=== PATIENT | female | born 1970 | race Caucasian/White ===

== ENCOUNTER → 2020-12-14 | Outpatient (CLI) | payer BC ==
--- NOTE | 2020-12-15 07:35 | CT ---
EXAMINATION TYPE: CT abdomen pelvis wo con DATE OF EXAM: 12/14/2020 HISTORY: Left lower quadrant abdominal pain x1 month. CT DLP: 805.4 mGycm. Automated Exposure Control for Dose Reduction was Utilized. TECHNIQUE: CT scan of the abdomen and pelvis is performed without oral or IV contrast. COMPARISON: NONE FINDINGS: Within the limitations of a non-contrast study, the following observations are made. LUNG BASES: No significant abnormality is appreciated. LIVER/GB: Cholecystectomy clips. PANCREAS: No significant abnormality is seen. SPLEEN: No significant abnormality is seen. ADRENALS: No significant abnormality is seen. KIDNEYS: No renal stones or hydronephrosis is seen bilaterally. BOWEL: Normal-appearing appendix seen from cecum in the right lower quadrant. No suspicious small or large bowel dilatation. No significant colonic diverticular disease. GENITAL ORGANS: Uterus surgically absent or markedly atrophic. Remnant left ovary is felt present and normal in size axial image 115. Right ovary not as well seen. Scattered pelvic phleboliths. Correlat e clinically. LYMPH NODES: No greater than 1cm abdominal or pelvic lymph nodes are appreciated. OSSEOUS STRUCTURES: Mild Facet arthropathy lower lumbar spine. OTHER: No significant additional abnormality is seen. IMPRESSION: No suspicious acute findings identified.
== END | disposition home or self-care (01) ==
LOC: RADCTMAIN 18:18
PROVIDERS: ATTEND Family Medicine
DX: R10.9 Unspecified abdominal pain (principal)
CPT/HCPCS: 74176

== ENCOUNTER 2022-01-03 19:44 | Emergency (ER) | payer BC, OTHER ==
[2022-01-03 20:00] VITALS: RESP 20
--- NOTE | 2022-01-03 20:23 | ED ---
Lower Extremity Injury HPI - General Chief Complaint: Extremity Injury, Lower Stated Complaint: Rt Knee Pain (Workers Comp) Time Seen by Provider: 01/03/22 20:11 Source: patient, RN notes reviewed Mode of arrival: wheelchair Limitations: no limitations - History of Present Illness Initial Comments: This is a pleasant 51-year-old female who states that she got out of work and slipped on ice. Patient twisted her right knee. She believes a twisting motion injured the knee. She did fall but does not recount any direct trauma. She has swelling to the right knee with pain across the anterior aspect which is exacerbated by movement. Alleviated by rest. No radiation proximally or distally. No hip or ankle problems. No distal paresthesias. No other injuries. No headache, no fever or chills, no changes in vision or hearing, no sore throat or difficulty with speech, no neck pain, no chest pain or shortness of breath, no abdominal pain, no nausea or vomiting, no changes in urination or bowel movements, no numbness or tingling, no extremity pain, no skin rashes or lesions. MD Complaint: knee injury - Related Data Previous Rx's Medication Instructions Recorded Naproxen [Naprosyn] 375 mg PO Q12HR PRN #20 tablet 01/03/22 Allergies Allergy/AdvReac Type Severity Reaction Status Date / Time No Known Allergies Allergy Verified 01/03/22 20:00 Review of Systems ROS Statement: Those systems with pertinent positive or pertinent negative responses have been documented in the HPI. ROS Other: All systems not noted in ROS Statement are negative. Past Medical History Past Medical History: No Reported History History of Any Multi-Drug Resistant Organisms: None Reported Past Surgical History: Orthopedic Surgery Additional Past Surgical History / Comment(s): lt knee Past Psychological History: No Psychological Hx Reported Smoking Status: Never smoker Past Alcohol Use History: Occasional Past Drug Use History: None Reported General Exam - General Exam Comments Initial Comments: 51-year-old female in no distress Limitations: no limitations General appearance: alert, in no apparent distress Head exam: Present: atraumatic, normocephalic, normal inspection Eye exam: Present: normal appearance, PERRL, EOMI. Absent: scleral icterus, conjunctival injection, periorbital swelling ENT exam: Present: normal exam, mucous membranes moist Neck exam: Present: normal inspection, full ROM. Absent: tenderness, meningismus, lymphadenopathy Respiratory exam: Present: normal lung sounds bilaterally. Absent: respiratory distress, wheezes, rales, rhonchi, stridor Cardiovascular Exam: Present: regular rate GI/Abdominal exam: Present: soft. Absent: tenderness Extremities exam: Present: full ROM, tenderness, normal capillary refill, other (Patient has notable soft tissue swelling to the anterior aspect of the right knee. All crepitus. There may be some laxity to the ACL on anterior drawer test. Ligaments stable otherwise. No distal proximal tenderness. Pedal pulses intact. Capillary refill less than 2 seconds. No break in skin ). Absent: normal inspection, pedal edema, joint swelling, calf tenderness Course Vital Signs 01/03/22 19:57 Temperature 98.2 F Pulse Rate 80 Respiratory 20 Rate Blood Pressure 156/78 O2 Sat by Pulse 99 Oximetry Medical Decision Making - Medical Decision Making Isolated orthopedic injury to right knee. Plain film x-rays ordered. Patient was told to return to the ER for any signs or symptoms worsen. Told to return immediately if any other problems arise. All questions answered. Treatment plan discussed. Patient in agreement Every effort has been made to ensure accuracy of this dictation. However, due to the limitations of electronic medical records and dictation devices, errors in charting still occur. A film x-rays show no evidence of bony pathology. Small effusion. We'll treat for ligamentous type injury and have patient follow-up with orthopedics. All findings discussed with the patient. All questions answered. - Radiology Data Radiology results: image reviewed Disposition Clinical Impression: Sprain of anterior cruciate ligament of right knee, initial encounter Disposition: HOME SELF-CARE Condition: Stable Instructions (If sedation given, give patient instructions): Knee Sprain (ED), Knee Immobilizer (ED) Additional Instructions: Elevation, ice 20 minutes on and off. You can also use [id number] acetaminophen for additional pain control. With any immobilizer until orthopedic follow-up. Work restrictions as stated. Follow-up with your regular physician as directed. Return to the ER immediately if any symptoms worsen, new symptoms arise, or any other problems develop. Prescriptions: Naproxen [Naprosyn] 375 mg PO Q12HR PRN #20 tablet PRN Reason: Pain Is patient prescribed a controlled substance at d/c from ED?: No Referrals: Brigitte Sahni DO [Doctor of Osteopathic Medicine] - 01/07/22 Time of Disposition: 21:19
--- NOTE | 2022-01-03 21:15 | XR ---
EXAMINATION TYPE: XR knee complete RT DATE OF EXAM: 01/03/2022 8:40 PM INDICATION: Patient age:Female; 51 years old; Reason for study: Right knee injury; COMPARISON: None. TECHNIQUE: The right knee was examined in AP lateral and oblique. FINDINGS: No evidence of any acute osseous pathology, joint space narrowing, soft tissue swelling. Mild osteophyte formation in the tibial plateau as well as the superior pole of the patella. Small tyshawn int effusion is present. IMPRESSION: 1. No acute osseous pathology. 2. Mild tricompartmental osteoarthritic changes. 3. Small joint effusion.
[2022-01-03 22:43] VITALS: BP 145/72; PULSE 76; TEMP 98
== END 2022-01-03 21:40 | disposition home or self-care (01) ==
LOC: EC 19:44
DX: S83.511A Sprain of anterior cruciate ligament of right knee, initial encounter (principal); W00.0XXA Fall on same level due to ice and snow, initial encounter
CPT/HCPCS: 99283; 73562; L1830 ×2